=== PATIENT | female | born 1945 | race Caucasian/White ===

== ENCOUNTER → 2016-06-13 | Outpatient (CLI) | payer MEDICARE, OTHER ==
[2016-06-13 09:15] LABS: MEAN CORPUSCULAR HEMOGLOBIN 30.4 PG (26.0-34.0); MEAN CORPUSCULAR HGB CONC 33.3 g/dL (31.0-37.0); MEAN CORPUSCULAR VOLUME 91 FL (80-100); PLATELET COUNT 301 10^3uL (150-450); WHITE BLOOD COUNT 8.84 10^3uL (4.0-11.0)
[2016-06-13 09:26] LABS: BAND NEUTROPHILS % 0 % (0-6); EOSINOPHILS % 15 % (0-4); LYMPHOCYTES # 3.3 #; MONOCYTES # 0.6 #; MONOCYTES % 7 % (3-11); RBC MORPH NORMAL (NORMAL); SEGMENTED NEUTROPHILS % 40 % (51-67); TOTAL CELLS COUNTED 100
[2016-06-13 09:32] LABS: ALBUMIN 4.2 g/dL (3.4-5.0); ANION GAP 15.4 MEQ/L (3-15); CALCULATED IONIZED CALCIUM 4.4 mg/dL (3.8-4.6); TOTAL PROTEIN 6.9 g/dL (6.4-8.5)
== END ==
LOC: LAB 08:45
PROVIDERS: ATTEND Internal Medicine
DX: Z00.00 Encounter for general adult medical examination without abnormal findings (principal); E78.4 Other hyperlipidemia; I10 Essential (primary) hypertension; E55.9 Vitamin D deficiency, unspecified; J30.2 Other seasonal allergic rhinitis; K21.9 Gastro-esophageal reflux disease without esophagitis; E03.8 Other specified hypothyroidism
CPT/HCPCS: 36415; 80053; 80061; 82306; 84439; 84443; 85025

== ENCOUNTER → 2016-07-02 | Outpatient (CLI) | payer MEDICARE, OTHER | LOC: RAD 13:52 | PROVIDERS: ATTEND Internal Medicine | DX: Z12.31 Encounter for screening mammogram for malignant neoplasm of breast (principal) ==